=== PATIENT | female | born 1970 | race African-American/Black ===

== ENCOUNTER 2018-07-15 16:10 | Emergency (ER) | payer MEDICAID ==
[~2018-07-15] VITALS: Ht 160 cm; Wt 63.5 kg
[2018-07-15 16:58] VITALS: BP 132/76
--- NOTE | 2018-07-15 17:14 | Emergency Room Report ---
History of Present Illness General Chief Complaint: Skin Rash/Abscess Source: Patient Present Illness HPI 47 year old female presents to the emergency department complaining of localized itching, erythema, warmth and swelling to the right lateral calf 2 days. Pt rates her pain currently as 2/10 in severity. Patient reports she believes she was bit by an insect and feels as though it is getting infected. Patient reports increase in tenderness and progression of erythema. Patient reports that she is currently breast-feeding and has a 14-week-old infant. Pt. denies fevers, chills or swollen tender lymph nodes. Denies lesions/rashes elsewhere on the body. Denies new medications or body washes or creams. Denies swelling of the lips, tongue , throat or airway. Denies wheezing, or shortness of breath. Denies recent travel, recent illness or ill contacts. denies blisters, oral lesions, or sloughing of the skin Allergies: Coded Allergies: No Known Allergies (Unverified , 07/15/18) Patient History Past Medical History: see triage record Past Surgical History: none Pertinent Family History: none Now: No - Immunizations: UTD Reviewed Nursing Documentation: PMH: Agreed; PSxH: Agreed Nursing Documentation-PMH Past Medical History: No Stated History Review of Systems All Other Systems: negative except mentioned in HPI Physical Exam Vital Signs Date Time Temp Pulse Resp B/P (MAP) Pulse Ox O2 Delivery O2 Flow Rate FiO2 07/15/18 16:21 98.1 17 99 Room Air 07/15/18 16:58 78 132/76 Sp02 EP Interpretation: reviewed, normal General Appearance: no apparent distress, alert, GCS 15, non-toxic Head: normocephalic, atraumatic Eyes: bilateral eye normal inspection, bilateral eye PERRL ENT: hearing grossly normal, no angioedema, normal voice Neck: full range of motion Respiratory: lungs clear, normal breath sounds, speaking full sentences Cardiovascular #1: regular rate, rhythm Musculoskeletal: back normal, gait/station normal, normal range of motion, tender - mild ttp to the affect area/ lesion on right lateral calf. Neurologic: alert, oriented x3, responsive, motor strength/tone normal, sensory intact, normal gait, speech normal, grossly normal Psychiatric: judgement/insight normal Skin: warm/dry, well hydrated, other - infected insect bite of the lateral right calf, no fluctuance palpated. size is approx 2 cm in diameter, no blisters or vesicles. Lymphatic: no adenopathy Medical Decision Making PA Attestation Dr. Reed is my supervising Physician whom patient management has been discussed with. Diagnostic Impression: Primary Impression: Insect bite, infected Qualified Codes: W57.XXXA - Bitten or stung by nonvenomous insect and other nonvenomous arthropods, initial encounter ER Course 47 year old female presents to the emergency department complaining of localized itching, erythema, warmth and swelling to the right lateral calf 2 days. Pt rates her pain currently as 2/10 in severity. Patient reports she believes she was bit by an insect and feels as though it is getting infected. Patient reports increase in tenderness and progression of erythema. Patient reports that she is currently breast-feeding and has a 14-week-old . Pt. denies fevers, chills or swollen tender lymph nodes. Denies lesions/rashes elsewhere on the body. Denies new medications or body washes or creams. Denies swelling of the lips, tongue , throat or airway. Denies wheezing, or shortness of breath. Denies recent travel, recent illness or ill contacts. denies blisters, oral lesions, or sloughing of the skin Ddx considered but are not limited to cellulitis, scabies, insect bites, tic bites, spider bites, contact dermatitis, Drug reaction, allergic reaction, fungal infection, lice. Vital signs: are WNL, pt. is afebrile H&PE are most consistent with infected insect bite of the lateral right calf, no fluctuance palpated. size is approx 2 cm in diameter, no blisters or vesicles. ORDERS: none required at this time, the diagnosis is clinical ED INTERVENTIONS: -none required at this time. DISCHARGE: At this time pt. is stable for d/c to home. Will provide printed patient care instructions, and any necessary prescriptions. Care plan and follow up instructions have been discussed with the patient prior to discharge. Last Vital Signs Date Time Temp Pulse Resp B/P (MAP) Pulse Ox O2 Delivery O2 Flow Rate FiO2 07/15/18 16:58 98.0 78 18 132/76 98 Room Air Disposition: HOME, SELF-CARE Condition: Stable Scripts Hydrocortisone (Hydrocortisone Cream 2.5%) Y Cream.appl 1 APPLIC TP BID, #28.3 GM Prov: Daisy Griffith 07/15/18 Cephalexin* (KEFLEX*) 500 Mg Capsule 500 MG ORAL EVERY 12 HOURS for 7 Days, #14 CAP 0 Refills Prov: Daisy Griffith 07/15/18 Patient Instructions: Insect Bite, [id number] Additional Instructions: Take medications as directed. Follow up with a Primary Care Provider in 3-5 days, even if your symptoms have resolved. --Please review list of primary care clinics, if you do not already have a primary care provider Return sooner to ED if new symptoms occur, or current symptoms become worse. - Please note that this Emergency Department Report was dictated using [employer] nurse technology software, occasionally this can lead to erroneous entry secondary to interpretation by the dictation equipment. Daisy Griffith Jul 15, 2018 17:14
[2018-07-15] MEDS ORDERED: HYDROCORTISONE30 G2 TP (17:15)
[2018-07-15] MEDS ORDERED: CEPHALEXIN500 MG ORAL (17:15)
[2018-07-15 17:33] VITALS: BP 124/78
== END 2018-07-15 17:33 | disposition home or self-care (01) ==
LOC: EMR 17:22
DX: S80.861A Insect bite (nonvenomous), right lower leg, initial encounter (principal); W57.XXXA Bitten or stung by nonvenomous insect and other nonvenomous arthropods, initial encounter; Y92.89 Other specified places as the place of occurrence of the external cause
CPT/HCPCS: 99283

== ENCOUNTER 2019-11-14 12:58 | Emergency (ER) | payer MEDICAID ==
[~2019-11-14] VITALS: Ht 157.5 cm; Wt 78.0 kg
[~2019-11-14 12:58] MED LIST: CEPHALEXIN500 MG ORAL; HYDROCORTISONE30 G2 TP
--- NOTE | 2019-11-14 13:19 | NUR ---
ED Nurse Note: pt ambulated to ed c/o left knee injury x 3 weeks ago now painful to walk
[2019-11-14] MEDS ORDERED: TYLENOL EXTRA500 MG ORAL (13:25)
[2019-11-14] MEDS ORDERED: VOLTAREN100 G1 TP (13:25)
--- NOTE | 2019-11-14 13:31 | Emergency Room Report ---
History of Present Illness General Chief Complaint: Lower Extremity Injury Source: Patient Present Illness HPI 49-year-old female presents with left knee pain for approximately 1 month. She reports that she has an infant at home and banged her knee into a safety gait at some point and has been having pain since. Pain is 6 out of 10, intermittent , aggravated by ambulation and movement. She has taken dejuan but no other medications. Denies any fever or other symptoms. Allergies: Coded Allergies: PENICILLINS (Verified Allergy, Unknown, 11/14/19) Patient History Past Medical History: see triage record Now: No Reviewed Nursing Documentation: PMH: Agreed; PSxH: Agreed Nursing Documentation-PMH Past Medical History: No Stated History Review of Systems All Other Systems: negative except mentioned in HPI Physical Exam Vital Signs Date Time Temp Pulse Resp B/P (MAP) Pulse Ox O2 Delivery O2 Flow Rate FiO2 11/14/19 13:09 97.9 82 16 114/78 (90) 98 Room Air Sp02 EP Interpretation: reviewed, normal General Appearance: normal inspection, well appearing, no apparent distress, alert, GCS 15, non-toxic Respiratory: lungs clear, normal breath sounds, no respiratory distress Cardiovascular #1: normal peripheral pulses, regular rate, rhythm Musculoskeletal: normal inspection, normal range of motion, no calf tenderness , no lower extremity edema, non-tender, other - No swelling, erythema or warmth. Neurovascularly intact. Neurologic: alert, motor strength/tone normal, construction materials tester III-XII nml as tested, oriented x3, sensory intact, speech normal Psychiatric: judgement/insight normal, mood/affect normal Skin: no rash, normal color, warm/dry Lymphatic: no adenopathy Medical Decision Making PA Attestation Dr. Dinh is my supervising physician whom patient management and care has been discussed with. Diagnostic Impression: Primary Impression: Knee pain Qualified Codes: M25.562 - Pain in left knee ER Course Pt. presents to the ED c/o left knee pain for 1 month status post hitting it against her child safety gate Ddx considered but are not limited to fracture, dislocation, sprain, contusion Vital signs: are WNL, pt. is afebrile H&PE are most consistent with knee contusion ORDERS: Left knee x-ray unremarkable ED INTERVENTIONS: None required at this time. DISCHARGE: At this time pt. is stable for d/c to home. Will provide printed patient care instructions, and prescriptions for Tylenol and Voltaren gel. Advised RICE. advised to follow up outpatient in 1-2 days. Care plan and follow up instructions have been discussed with the patient prior to discharge. Other X-Ray Diagnostic Results Other X-Ray Diagnostic Results : X-Ray ordered: Left knee # of Views/Limited Vs Complete: 2 View Indication: Pain EP Interpretation: Yes PA Xray: Interpretation reviewed, by supervising MD, and agrees with findings. Interpretation: no dislocation, no soft tissue swelling, no fractures Impression: No acute disease Last Vital Signs Date Time Temp Pulse Resp B/P (MAP) Pulse Ox O2 Delivery O2 Flow Rate FiO2 11/14/19 13:09 97.9 82 16 114/78 (90) 98 Room Air Disposition: HOME, SELF-CARE Condition: Stable Scripts Diclofenac Sodium (VOLTAREN) 100 Gm Gel..gram. 100 GM TP BID for pain, #30 GM Prov: Catia Abarca. P.ARaj 11/14/19 Acetaminophen* (TYLENOL EXTRA STRENGTH*) 500 Mg Tablet 500 MG ORAL Q8H PRN for Prn Headache/Temp > 101, #30 TAB 0 Refills Prov: Catia Abarca N. P.A. 11/14/19 Patient Instructions: Knee Pain, [id number] Additional Instructions: Take medications as directed. Keep knee elevated, apply ice. Follow up with a Primary Care Provider in 1-2 days, even if your symptoms have resolved. --Please review list of primary care clinics, if you do not already have a primary care provider Return to the emergency department sooner if new symptoms occur, or current symptoms become worse. - Please note that this Emergency Department Report was dictated using [employer] helper technology software, occasionally this can lead to erroneous entry secondary to interpretation by the dictation equipment. Catia Abarca Nov 14, 2019 13:31
--- NOTE | 2019-11-14 14:34 | Diagnostic Imaging Report ---
Indication: Left knee pain 2 views of the left knee were obtained. Findings: No acute fracture, malalignment, or joint effusion are identified. Joint space is relatively well-maintained. Mild marginal osteophytes are noted. Bone mineralization is within normal limits for age. Impression: No acute fracture. Mild degenerative changes
[2019-11-14 14:43] VITALS: BP 124/79
--- NOTE | 2019-11-14 14:44 | NUR ---
ER DISCHARGE NOTE: Patient is cleared to be discharged per ERMD, pt is aox4, on room air, with stable vital signs. pt was given dc and prescription instructions, pt was able to verbalize understanding, pt id band removed. pt is able to ambulate with steady gait. pt took all belongings.
== END 2019-11-14 14:42 | disposition home or self-care (01) ==
LOC: EMR 13:40
DX: M25.562 Pain in left knee (principal); Z88.0 Allergy status to penicillin
CPT/HCPCS: 73560; Z7502; 99283